=== PATIENT | male | born 1985 | race Caucasian/White ===

== ENCOUNTER 2017-02-22 06:50 | Emergency (ER) | payer OTHER ==
[~2017-02-22] VITALS: Ht 177.8 cm; Wt 97.0 kg
[~2017-02-22 06:50] MED LIST: KETO10TA PO; LEVE500T38 PO; METH500T97 PO; ZONI100C2 PO
[2017-02-22 06:54] VITALS: BP 122/75
[2017-02-22] MEDS ORDERED: LIDOCAINE 1%, 20ML ONE (07:09)
[2017-02-22] MEDS ORDERED: THIAMINE 100MG TABLET PO ONE (08:00)
[2017-02-22] MEDS ORDERED: DIPH,PERTUSS(ACELL),TET VAC/PF 0.5 ML IM-VACC ONE ×3 (08:30→09:17)
[2017-02-22] MEDS ORDERED: ACETAMINOPHEN 500 MG TABLET PO ONE (08:30)
[2017-02-22] MEDS ORDERED: ACETAMINOPHEN 500 MG TABLET ONE (08:37)
[2017-02-22] MEDS ORDERED: THIAMINE 100MG TABLET ONE (08:37)
[2017-02-22] MEDS ORDERED: BACITRACIN ZINC OINT 500U/GM, 0.9 GM ONE (09:06)
== END 2017-02-22 09:20 | disposition home or self-care (01) ==
LOC: ED 08:00
DX: S06.0X0A Concussion without loss of consciousness, initial encounter (principal); S01.01XA Laceration without foreign body of scalp, initial encounter; S01.511A Laceration without foreign body of lip, initial encounter; F10.188 Alcohol abuse with other alcohol-induced disorder; G40.909 Epilepsy, unspecified, not intractable, without status epilepticus; Y04.8XXA Assault by other bodily force, initial encounter; Y93.89 Activity, other specified; Y92.89 Other specified places as the place of occurrence of the external cause; Y99.8 Other external cause status
CPT/HCPCS: 12002; 40650; 70450; 70486; 90471; 90715